=== PATIENT | male | born 1965 | race Caucasian/White ===

== ENCOUNTER 2017-02-18 19:36 | Emergency (ER) | payer BC ==
[2017-02-18 19:50] VITALS: BP 171/96
[2017-02-18] MEDS ORDERED: HYDROmorphone 1 MG/ML Syringe IVPUSH ONE ×3 (20:10→22:08)
[2017-02-18] MEDS ORDERED: Ondansetron 4 MG/2 ML SDV IV ONE (20:10)
[2017-02-18 20:35] LABS: CHLORIDE,CL 102 mmol/L (101-111); SODIUM,NA 140 mmol/L (135-145)
[2017-02-18] MEDS ORDERED: Iopamidol 612 MG/ML 100 ML Bottle IVPUSH ONE (23:08)
--- NOTE | 2017-02-19 06:47 | EDM.PDOC ---
ED HPI GENERAL MEDICAL PROBLEM - General Chief Complaint: Back Pain or Injury Stated Complaint: FELL OFF LADDER ONTO TREE, [id number] Time Seen by Provider: 02/18/17 19:45 Source of Information: Reports: Patient History Limitations: Reports: No Limitations - History of Present Illness INITIAL COMMENTS - FREE TEXT/NARRATIVE: ED ambulatory with friend, patient reports falling off ladder onto tree he had just cut down, fall approximately 4 feet. Noted landing on left side, No loss of consciousness, Did not hit head. C/o minor neck pain, pain to left shoulder, left wrist left ribs and hip. Was able to get up with assistance of friend. Pain with breathing. Onset: Today Location: Reports: Neck, Chest, Upper Extremity, Left Quality: Reports: Sharp (with inspiration), Throbbing Improves with: Reports: Immobilization Worsens with: Reports: Breathing, Movement Context: Reports: Trauma Left Lower Shoulder Pain Score (Numeric/FACES): 9 Left Wrist Pain Score (Numeric/FACES): 6 - Related Data Allergies Allergy/AdvReac Type Severity Reaction Status Date / Time No Known Allergies Allergy Verified 02/18/17 19:50 Home Meds: Home Meds . [No Known Home Meds] 02/18/17 [History] Past Medical History - Past Health History Medical/Surgical History: Denies Medical/Surgical History - Past Surgical History HEENT Surgical History: Reports: Tonsillectomy GI Surgical History: Reports: Appendectomy Social & Family History - Tobacco Use Smoking Status *Q: Current Every Day Smoker Years of Tobacco use: 25 Packs/Tins Daily: 5 - Caffeine Use Caffeine Use: Reports: Coffee, Soda, Tea - Recreational Drug Use Recreational Drug Use: No Review of Systems - Review of Systems Review Of Systems: ROS reveals no pertinent complaints other than HPI. ED EXAM, GENERAL - Physical Exam Exam: See Below Exam Limited By: No Limitations General Appearance: Alert, No Apparent Distress Eye Exam: Bilateral Eye: EOMI, PERRL Ears: Normal External Exam, Normal TMs Nose: Normal Inspection Throat/Mouth: Normal Inspection Head: Atraumatic, Normocephalic Neck: Normal Inspection, Tender Midline (lower) Respiratory/Chest: Decreased Breath Sounds, Wheezing (intermittant left), Splinting. No: Chest Non-Tender Cardiovascular: Normal Peripheral Pulses, Regular Rate, Rhythm, No Murmur GI/Abdominal: Normal Bowel Sounds, Soft, No Distention, Tender (mild LUQ) Extremities: Other (left shoulder no gross deformity, limited ROM, left wrist swollen, mild deformity, mild left hip pain with palpation) Neurological: Alert, Oriented, CN II-XII Intact, Normal Cognition Psychiatric: Normal Affect, Normal Mood Skin Exam: Warm, Dry, Intact, Normal Color ED TRAUMA PROCEDURES - Splinting Left Upper Extremity Splint Site: wrist Pre-Procedure NV Status: Normal Post-Procedure NV Status: Normal Splint Material: Metal Applied & Form Fitted By: Provider Provider Post-Splint Application NV Check: NV Status Normal Complications: No Course - Vital Signs Last Recorded V/S: Last Vital Signs Temp 97.2 F 02/18/17 19:40 Pulse 85 02/18/17 19:40 Resp 35 H 02/18/17 19:40 BP 171/96 H 02/18/17 19:40 Pulse Ox 95 02/18/17 19:40 - Orders/Labs/Meds Orders: Active Orders 24 hr Category Date Time Status UA W/MICROSCOPIC [URIN] Stat Lab 02/18/17 22:08 Uncollected Labs: Laboratory Tests 02/18/17 02/18/17 02/18/17 Range/Units 20:10 20:10 20:10 WBC 10.6 H (5.0-10.0) 10^3/uL RBC 4.93 (4.6-6.2) 10^6/uL Hgb 16.9 (14.0-18.0) g/dL Hct 47.1 (40.0-54.0) % MCV 95.5 (80-100) fL MCH 34.3 H (27.0-34.0) pg MCHC 35.9 H (33.0-35.0) g/dL Plt Count 68 L (150-450) 10^3/uL Neut % (Auto) 69.0 (42.2-75.2) % Lymph % (Auto) 22.3 (20.5-50.1) % [place] % (Auto) 7.4 (2-8) % Eos % (Auto) 1.2 (1.0-3.0) % Baso % (Auto) 0.1 (0.0-1.0) % PT 10.1 (9.0-12.0) SEC INR 1.0 (0.9-1.2) Sodium 140 (135-145) mmol/L Potassium 4.2 (3.6-5.0) mmol/L Chloride 102 (101-111) mmol/L Carbon Dioxide 24.0 (21.0-31.0) mmol/L Anion Gap 18.2 BUN 20 H (7-18) mg/dL Creatinine 0.8 (0.6-1.3) mg/dL Est Cr Clr Drug Dosing 124.84 mL/min Estimated GFR (MDRD) > 60 BUN/Creatinine Ratio 25.00 Glucose 107 H (74-105) mg/dL Calcium 9.5 (8.4-10.2) mg/dl Total Bilirubin 0.9 (0.2-1.0) mg/dL AST 48 H (10-42) IU/L ALT 49 (10-60) IU/L Alkaline Phosphatase 73 (42-121) IU/L Total Protein 8.2 (6.7-8.2) g/dl Albumin 5.0 (3.2-5.5) g/dl Globulin 3.2 Albumin/Globulin Ratio 1.56 Amylase 81 (28-100) U/L Lipase 41 (22-51) U/L Meds: Medications Discontinued Medications Generic Name Dose Route Start Last Admin Trade Name Freq PRN Reason Stop Dose Admin Hydromorphone HCl 1 mg 02/18/17 20:10 02/18/17 20:23 Dilaudid IVPUSH 02/18/17 20:11 1 mg ONETIME ONE Administration Hydromorphone HCl 1 mg 02/18/17 20:51 02/18/17 20:58 Dilaudid IVPUSH 02/18/17 20:52 1 mg ONETIME ONE Administration Hydromorphone HCl 1 mg 02/18/17 22:08 02/18/17 22:12 Dilaudid IVPUSH 02/18/17 22:09 1 mg ONETIME ONE Administration Iopamidol 100 ml 02/18/17 23:08 02/18/17 23:43 Isovue-300 (61%) IVPUSH 02/18/17 23:09 100 ml ONETIME ONE Administration Ondansetron HCl 4 mg 02/18/17 20:10 02/18/17 20:23 Zofran IV 02/18/17 20:11 4 mg ONETIME ONE Administration - Radiology Interpretation Free Text/Narrative:: Fx distal radius lateral fracture 6-9 left ribs fx costovertebral ribs left 5-7 pulmunary contusion left small left hemothorax abdomen and pelvis negative - Re-Assessments/Exams Free Text/Narrative Re-Assessment/Exam: 02/19/17 06:55 Tx to [facility] for further eval and management of multiple rib fractures and pulmonary contusion with small hemothorax. Dr. Lu accepting. Departure - Departure Time of Disposition: 22:30 Disposition: DC/Tfer to Acute Hospital 02 Condition: Undetermined Clinical Impression: Trauma, Hemothorax on left Multiple fractures of left upper extremity and ribs Qualifiers: Encounter type: initial encounter Fracture type: closed Qualified Code(s): S42.302A - Unspecified fracture of shaft of humerus, left arm, initial encounter for closed fracture; S22.42XA - Multiple fractures of ribs, left side , initial encounter for closed fracture Pulmonary contusion Qualifiers: Encounter type: initial encounter Laterality: left Qualified Code(s): S27.321A - Contusion of lung, unilateral, initial encounter - Discharge Information Forms: ED Department Discharge, Interfacility Transfer EMTALA - My Orders Last 24 Hours: My Active Orders 02/18/17 22:08 UA W/MICROSCOPIC [URIN] Stat - Assessment/Plan Last 24 Hours: My Active Orders 02/18/17 22:08 UA W/MICROSCOPIC [URIN] Stat
== END 2017-02-18 22:32 ==
LOC: DL.ED 19:36
DX: S27.1XXA Traumatic hemothorax, initial encounter (principal); S52.515A Nondisplaced fracture of left radial styloid process, initial encounter for closed fracture; S42.302A Unspecified fracture of shaft of humerus, left arm, initial encounter for closed fracture; S22.42XA Multiple fractures of ribs, left side, initial encounter for closed fracture; F17.210 Nicotine dependence, cigarettes, uncomplicated; Z90.49 Acquired absence of other specified parts of digestive tract; Z98.890 Other specified postprocedural states; W14.XXXA Fall from tree, initial encounter
CPT/HCPCS: 29125; 36415; 71260; 72125; 73020; 73110; 74177; 80053; 82150; 83690; 85025; 85610; 96374; 96375; 96376; 99285; J1170; J2405; Q9967

== ENCOUNTER → 2020-09-05 | Day surgery (SDC) | payer BC, OTHER ==
[~2020-09-05] MED LIST: Dextrose 5%-0.45% NaCl 1,000 ML IV SCH; Midazolam 1 MG/ML 2 ML SDV IV ONE; Midazolam 1 MG/ML 2 ML SDV ONE; Sodium Chloride 0.9% 10 ML Syringe FLUSH PRN; fentaNYL 100 MCG/2 ML SDV IV ONE; fentaNYL 100 MCG/2 ML SDV ONE
[2020-09-05 09:23] VITALS: BP 131/69; PULSE 65
--- NOTE | 2020-09-05 12:48 | OR ---
DATE: 09/05/2020 PROCEDURE: Total colonoscopy and multiple cold snare polypectomies. INSTRUMENT USED: [id number] Olympus video colonoscope. PREMEDICATIONS: Fentanyl 100 mcg intravenous, Versed 4 mg intravenous. The procedure was done under pulse oximetry and winder hand, and BP recording. INDICATIONS: Screening colonoscopic examination is done for detection of any polypoid lesions and removal, endoscopic hemostasis therapy if needed. DESCRIPTION OF PROCEDURE: Initial rectal exam was unremarkable. Rigid anoscopy was normal. The colonoscope was passed with ease. A couple of diminutive benign-appearing polyps were noted, photograph was taken, cold snare polypectomies were done, the tissues were retrieved and sent for histopathology. The scope was passed with ease up to the ileocecal area. Photographs were taken of the normal-appearing cecum identified by landmarks of appendiceal orifice and double-bulged ileocecal folds. No bleeding was noted from any of the visualized areas at the commencement of the examination. The bowel preparation was found to be adequate, [place] scale 3 in all the regions, total score 9. No stricture. No vascular ectasia. No large isolated ulcerations seen. No evidence of diffuse inflammatory bowel disease in the form of friability, contact bleeding, or ulcerations. Probing the proximal sides of folds and flexures using adequate distention and clearing up the stool material, withdrawal of the scope was made, cecum to rectum time over 6 minutes. No bleeding was noted from any of the visualized areas at the completion of examination. IMPRESSION: Diminutive rectal polyps. The patient tolerated the procedure well. [facility] /[id number]
== END ==
LOC: DL.ENDO 06:00
PROVIDERS: ATTEND Internal Medicine Gastroenterology
DX: Z12.11 Encounter for screening for malignant neoplasm of colon (principal); K62.1 Rectal polyp; I10 Essential (primary) hypertension; F17.210 Nicotine dependence, cigarettes, uncomplicated; M96.1 Postlaminectomy syndrome, not elsewhere classified; M54.5 Low back pain; E66.09 Other obesity due to excess calories; Z68.34 Body mass index [BMI] 34.0-34.9, adult; Z98.890 Other specified postprocedural states
CPT/HCPCS: 45385; J2250; J3010; J7042

== ENCOUNTER 2020-09-23 10:01 | Emergency (ER) | payer BC, OTHER ==
[2020-09-23] MEDS ORDERED: Diphtheria,Pertussis(Acell),Tetanus Vaccine 0.5 ML Syringe IM ONE (10:13)
[2020-09-23] MEDS ORDERED: Cephalexin 500 MG Cap PO ONE (10:13)
[2020-09-23 10:14] VITALS: BP 161/91; PULSE 90
[2020-09-23] MEDS ORDERED: Bacitracin Oint 1 GM U/D Packet TOP ONE (10:14)
--- NOTE | 2020-09-23 10:19 | EDM.PDOC ---
Scribed by Carri Sher 09/23/20 1010 for Dwight Beltran MD ED HPI GENERAL MEDICAL PROBLEM - General Chief Complaint: Laceration Stated Complaint: STEPPED ON JASIEL NAIL Time Seen by Provider: 09/23/20 10:05 Source of Information: Reports: Patient, RN, RN Notes Reviewed History Limitations: Reports: No Limitations - History of Present Illness INITIAL COMMENTS - FREE TEXT/NARRATIVE: Pt stepped on a jasiel nail last night. He had shoe and sock on at the time. Denies any other injury. Pt states his last Tetanus vaccine was in 2008. Onset: Sudden Onset Date: 09/22/20 Duration: Constant Location: Reports: Lower Extremity, Left Quality: Reports: Ache Severity: Mild Improves with: Reports: None Worsens with: Reports: None Associated Symptoms: Reports: No Other Symptoms - Related Data Allergies Allergy/AdvReac Type Severity Reaction Status Date / Time No Known Allergies Allergy Verified 09/04/20 11:38 Home Meds: Home Meds Acetaminophen [Acetaminophen Extra Strength] 1,000 mg PO Q6HR 11/17/17 [History] Ibuprofen [Motrin] 600 mg PO Q6HR 11/17/17 [History] Lisinopril 40 mg PO DAILY 11/17/17 [History] Past Medical History - Past Health History Medical/Surgical History: Denies Medical/Surgical History HEENT History: Reports: None Cardiovascular History: Reports: Hypertension Respiratory History: Reports: Other (See Below) Other Respiratory History: HX OF TOBACCO HABITUATION. HX OF LEFT HEMOTHORAX Gastrointestinal History: Reports: None Genitourinary History: Reports: None Musculoskeletal History: Reports: Back Pain, Chronic Neurological History: Reports: None Psychiatric History: Reports: Depression Endocrine/Metabolic History: Reports: Obesity/BMI 30+ Hematologic History: Reports: None Immunologic History: Reports: None Oncologic (Cancer) History: Reports: None Dermatologic History: Reports: None - Infectious Disease History Infectious Disease History: Reports: None - Past Surgical History Head Surgeries/Procedures: Reports: None HEENT Surgical History: Reports: Tonsillectomy Cardiovascular Surgical History: Reports: None Respiratory Surgical History: Reports: None GI Surgical History: Reports: Appendectomy Male Surgical History: Reports: None Endocrine Surgical History: Reports: None Neurological Surgical History: Reports: None Musculoskeletal Surgical History: Reports: ORIF, Other (See Below) Other Musculoskeletal Surgeries/Procedures:: RIGHT FOOT AND ANKLE ORIF Oncologic Surgical History: Reports: None Dermatological Surgical History: Reports: None Social & Family History - Family History Family Medical History: No Pertinent Family History - Caffeine Use Caffeine Use: Reports: Coffee, Soda, Tea Other Caffeine Use: AVERAGE OF 4-5 BEVERAGES DAILY Review of Systems - Review of Systems Review Of Systems: Comprehensive ROS is negative, except as noted in HPI. ED EXAM, GENERAL - Physical Exam Exam: See Below Exam Limited By: No Limitations General Appearance: Alert, WD/WN, No Apparent Distress Throat/Mouth: Normal Inspection, Normal Lips, Normal Voice Head: Atraumatic, Normocephalic Respiratory/Chest: No Respiratory Distress Cardiovascular: Normal Peripheral Pulses Extremities: Normal Range of Motion, Normal Capillary Refill, Other (left plantar foot has a small puncture wound, no FB, no signs of infection) Neurological: Alert, Oriented, No Motor/Sensory Deficits Psychiatric: Normal Mood Skin Exam: Warm, Dry, Normal Color, No Rash Course - Vital Signs Last Recorded V/S: Last Vital Signs Temp 97.9 F 09/23/20 10:13 Pulse 90 09/23/20 10:13 Resp 20 09/23/20 10:13 BP 161/91 H 09/23/20 10:13 Pulse Ox 97 09/23/20 10:13 - Orders/Labs/Meds Orders: Active Orders 24 hr Category Date Time Status Vaccines to be Administered [RC] PER UNIT ROUTINE Care 09/23/20 10:13 Ordered Bacitracin [Bacitracin Oint 1 GM] Med 09/23/20 10:14 Once 1 dose TOP ONETIME ONE Diphth,Pertuss(Acell),Tet Vac [Boostrix] Med 09/23/20 10:13 Once 0.5 ml IM .ONCE ONE cephALEXin [Keflex] Med 09/23/20 10:13 Once 500 mg PO ONETIME ONE Departure - Departure Time of Disposition: 10:18 Disposition: Home, Self-Care 01 Condition: Good Clinical Impression: Puncture wound of left foot Qualifiers: Encounter type: initial encounter Qualified Code(s): S91.332A - Puncture wound without foreign body, left foot, initial encounter - Discharge Information *PRESCRIPTION DRUG MONITORING PROGRAM REVIEWED*: Not Applicable *COPY OF PRESCRIPTION DRUG MONITORING REPORT IN PATIENT GINA: Not Applicable Instructions: Puncture Wound Forms: ED Department Discharge Additional Instructions: Rx: Cephalexin 500mg Follow up in clinic or ER if any signs of wound infection develop. Sepsis Event Note (ED) - Focused Exam Vital Signs: Vital Signs Temp Pulse Resp BP Pulse Ox 09/23/20 10:13 97.9 F 90 20 161/91 H 97 - My Orders Last 24 Hours: My Active Orders 09/23/20 10:13 Vaccines to be Administered [RC] PER UNIT ROUTINE Diphth,Pertuss(Acell),Tet Vac [Boostrix] 0.5 ml IM .ONCE ONE cephALEXin [Keflex] 500 mg PO ONETIME ONE 09/23/20 10:14 Bacitracin [Bacitracin Oint 1 GM] 1 dose TOP ONETIME ONE - Assessment/Plan Last 24 Hours: My Active Orders 09/23/20 10:13 Vaccines to be Administered [RC] PER UNIT ROUTINE Diphth,Pertuss(Acell),Tet Vac [Boostrix] 0.5 ml IM .ONCE ONE cephALEXin [Keflex] 500 mg PO ONETIME ONE 09/23/20 10:14 Bacitracin [Bacitracin Oint 1 GM] 1 dose TOP ONETIME ONE I have read and agree with the documentation that has been completed regarding this visit. By signing this record, I attest that the documentation was completed in my physical presence and is an accurate record of the encounter.
== END 2020-09-23 10:48 | disposition home or self-care (01) ==
LOC: DL.ED 10:01
DX: S91.332A Puncture wound without foreign body, left foot, initial encounter (principal); I10 Essential (primary) hypertension; E66.9 Obesity, unspecified; Z68.34 Body mass index [BMI] 34.0-34.9, adult; Z79.899 Other long term (current) drug therapy; Z23 Encounter for immunization; W45.0XXA Nail entering through skin, initial encounter
CPT/HCPCS: 90471; 90715; 99283; A9270

== ENCOUNTER 2024-03-24 14:59 | Emergency (ER) | payer OTHER ==
[2024-03-24] MEDS ORDERED: Sodium Chloride 0.9% 10 ML Syringe FLUSH PRN (15:34)
[2024-03-24 15:54] LABS: HEMATOCRIT 33.4 % (40.0-54.0); HEMOGLOBIN 11.9 g/dL (14.0-18.0); MEAN CORPUSCULAR HEMOGLOBIN 33.3 pg (27.0-34.0); MEAN CORPUSCULAR HGB CONC 35.6 g/dL (33.0-35.0); MEAN CORPUSCULAR VOLUME 93.6 fL (80-100); PLATELET COUNT,PLT 110 10^3/uL (150-450); RED BLOOD CELL COUNT 3.57 10^6/uL (4.6-6.2); WHITE BLOOD CELL COUNT,WBC 6.2 10^3/uL (5.0-10.0)
[2024-03-24 16:04] LABS: BASOPHILS PERCENT AUTO 0.3 % (0.0-1.0); EOSINOPHILS PERCENT AUTO 0.3 % (1.0-3.0); LYMPHOCYTES PERCENT AUTO 13.5 % (20.5-50.1); MONOCYTES PERCENT AUTO 10.5 % (2-8); NEUTROPHILS PERCENT AUTO 75.4 % (42.2-75.2)
[2024-03-24 16:13] LABS: A/G RATIO 1.1; ALBUMIN 3.8 g/dL (3.4-5.0); ANION GAP 8.3 mEq/L (7-13); BILIRUBIN TOTAL 0.5 mg/dL (0.2-1.0); BUN/CREATININE RATIO 17.2 (No establ ref range); CALCIUM 9.2 mg/dL (8.5-10.1); CREATININE 0.87 mg/dL (0.70-1.30); EST CRCL DRUG DOSING (CG) 102.82 mL/min; MAGNESIUM 1.8 mg/dL (1.8-2.4); POTASSIUM,K 3.3 mmol/L (3.5-5.1); PROTEIN TOTAL,TP 7.2 g/dL (6.4-8.2)
[2024-03-24] MEDS: Iopamidol 612 MG/ML 100 ML Bottle IVPUSH ONE (16:23)
[2024-03-24 16:35] LABS: BAND PERCENT MAN 2 %; EOSINOPHILS PERCENT MAN 1 % (1-3); LYMPHOCYTES PERCENT MAN 15 % (20-50); MONOCYTES PERCENT MAN 8 % (2-8); SEG NEUTROPHILS PERCENT MAN 74 % (42-75)
[2024-03-24 17:48] VITALS: BP 137/76; PULSE 98
== END 2024-03-24 18:23 | disposition home or self-care (01) ==
LOC: DL.ED 14:59
DX: I87.1 Compression of vein (principal); C34.90 Malignant neoplasm of unspecified part of unspecified bronchus or lung; C79.51 Secondary malignant neoplasm of bone; I10 Essential (primary) hypertension; E66.9 Obesity, unspecified; Z68.32 Body mass index [BMI] 32.0-32.9, adult; Z90.49 Acquired absence of other specified parts of digestive tract; Z79.899 Other long term (current) drug therapy
CPT/HCPCS: 36415; 71260; 80053; 83735; 85025; 99284; Q9967

== ENCOUNTER 2024-06-16 19:06 | Observation (INO) | payer OTHER ==
[2024-06-16] MEDS ORDERED: Acetaminophen/oxyCODONE 325-5 MG Tab PO PRN (19:47)
[2024-06-16] MEDS ORDERED: HYDROmorphone 0.5 MG/0.5 ML Syringe IVPUSH PRN (19:47)
[2024-06-16] MEDS ORDERED: Polyethylene Glycol 3350 Powder 17 GM Packet PO PRN (19:47)
[2024-06-16] MEDS ORDERED: Sennosides/Docusate Sodium 50-8.6 MG Tab PO PRN (19:47)
[2024-06-16] MEDS ORDERED: hydrALAZINE 20 MG/ML SDV IVPUSH PRN (19:47)
[2024-06-16] MEDS ORDERED: Naloxone 2 MG/2 ML Syringe IVPUSH PRN (19:47)
[2024-06-16] MEDS ORDERED: Metoprolol Tartrate 5 MG/5 ML SDV IVPUSH PRN (19:47)
[2024-06-16] MEDS ORDERED: Acetaminophen 325 MG Tab PO PRN ×2 (19:47→20:00)
[2024-06-16] MEDS ORDERED: Albuterol/Ipratropium 3.0-0.5 MG/3 ML Neb Soln NEB PRN (19:47)
[2024-06-16] MEDS ORDERED: Ondansetron 4 MG/2 ML SDV IVPUSH PRN (19:47)
[2024-06-16] MEDS ORDERED: Magnesium Hydroxide 400 MG/5 ML Susp 30 ML Cup PO PRN (19:47)
[2024-06-16] MEDS ORDERED: Benzocaine 20% Topical Spray UD MUCMEM PRN (20:18)
[2024-06-16 21:54] LABS: T4 FREE 1.46 ng/dL (0.76-1.46); TSH ULTRASENSITIVE 0.06 uIU/mL (0.36-3.74)
[2024-06-16 21:57] LABS: C-REACTIVE PROTEIN 0.52 ng/dL (<=0.50); MAGNESIUM 1.5 mg/dL (1.8-2.4)
[2024-06-16 22:01] LABS: LACTIC ACID 3.9 mmol/L (0.4-2.0)
[2024-06-16] MEDS: Dexamethasone 4 MG/ML SDV IVPUSH SCH (22:07)
[2024-06-16] MEDS: VANCOmycin 1.5 GM/300 ML 300 ML IV ONE (22:08)
[2024-06-16] MEDS: Sodium Chloride 0.9% 1,000 ML IV SCH (22:08)
[2024-06-16] MEDS: Cefepime 1 GM Vial IVPUSH SCH (22:08)
[2024-06-16] MEDS: Lactated Ringers 2,000 ML IV ONE (22:41)
[2024-06-16] MEDS: diphenhydrAMINE 50 MG/ML SDV IVPUSH ONE (23:01)
[2024-06-16] MEDS: Famotidine 20 MG/2 ML SDV IVPUSH ONE (23:01)
[2024-06-16] MEDS: Lactated Ringers 1,500 ML IV ONE (23:56)
[2024-06-17] MEDS: Magnesium Sulfate/Water Premix 2 GM in Premix Bag 1 BAG IV ONE ×2 (04:05→04:22)
[2024-06-17 06:53] LABS: HEMATOCRIT 28.7 % (40.0-54.0); HEMOGLOBIN 9.8 g/dL (14.0-18.0); MEAN CORPUSCULAR HEMOGLOBIN 37.1 pg (27.0-34.0); MEAN CORPUSCULAR HGB CONC 34.1 g/dL (33.0-35.0); MEAN CORPUSCULAR VOLUME 108.7 fL (80-100); PLATELET COUNT,PLT 101 10^3/uL (150-450); RED BLOOD CELL COUNT 2.64 10^6/uL (4.6-6.2); WHITE BLOOD CELL COUNT,WBC 15.8 10^3/uL (5.0-10.0)
[2024-06-17 07:24] LABS: BASOPHILS PERCENT AUTO 0.1 % (0.0-1.0); NEUTROPHILS PERCENT AUTO 93.9 % (42.2-75.2)
[2024-06-17 07:40] LABS: ALANINE AMINOTRANSFERASE,ALT 70 U/L (16-63); ALKALINE PHOSPHATASE 89 U/L (46-116); ANION GAP 12.9 mEq/L (7-13); ASPARTATE AMNIOTRANSFERASE,AST 94 U/L (15-37); BILIRUBIN TOTAL 0.4 mg/dL (0.2-1.0); BLOOD UREA NITROGEN,BUN 11 mg/dL (7-18); BUN/CREATININE RATIO 24.4 (No establ ref range); CALCIUM 8.6 mg/dL (8.5-10.1); CARBON DIOXIDE,CO2 28 mmol/L (21-32); CHLORIDE,CL 102 mmol/L (98-107); CREATININE 0.45 mg/dL (0.70-1.30); EST CRCL DRUG DOSING (CG) 198.79 mL/min; GLUCOSE RANDOM 137 mg/dL (70-99); MAGNESIUM 2.1 mg/dL (1.8-2.4); POTASSIUM,K 3.9 mmol/L (3.5-5.1); PROTEIN TOTAL,TP 5.9 g/dL (6.4-8.2); SODIUM,NA 139 mmol/L (136-145)
[2024-06-17 07:46] LABS: A/G RATIO 1.03; C-REACTIVE PROTEIN < 0.50 ng/dL (<=0.50); CREATINE KINASE,CK 1471 U/L (39-308); ESTIMATED GFR 123 mL/min (>=60)
[2024-06-17 07:49] LABS: BAND PERCENT MAN 5 %; LYMPHOCYTES PERCENT MAN 4 % (20-50); MONOCYTES PERCENT MAN 3 % (2-8); SEG NEUTROPHILS PERCENT MAN 88 % (42-75)
[2024-06-17 07:55] LABS: SEDIMENTATION RATE MANUAL 29 mm/hr (0-15)
[2024-06-17] MEDS: Loratadine 10 MG Tab PO SCH (09:18)
[2024-06-17] MEDS: Famotidine 20 MG Tab PO SCH (09:18)
[2024-06-17 09:54] LABS: APPEARANCE,URINE CLEAR (CLEAR); BACTERIA,URINE RARE /HPF (0-FEW/HPF); BILIRUBIN,URINE NEGATIVE (NEGATIVE); COLOR,URINE YELLOW (YELLOW); EPITHELIAL CELLS,URINE RARE /HPF (NOT SEEN); GLUCOSE,URINE NEGATIVE (NEGATIVE); KETONES,URINE NEGATIVE (NEGATIVE); LEUKOCYTE ESTERASE,URINE NEGATIVE (NEGATIVE); MUCUS,URINE RARE /LPF (NOT SEEN); NITRITE,URINE NEGATIVE (NEGATIVE); OCCULT BLOOD,URINE NEGATIVE (NEGATIVE); PROTEIN,URINE NEGATIVE (NEGATIVE); RBC,URINE 0-5 /HPF (0-5); UROBILINOGEN,URINE 0.2 mg/dL (0.2-1.0); WBC,URINE NOT SEEN /HPF (0-5/HPF)
[2024-06-17 10:26] LABS: CORONAVIRUS COVID-19 NAA NEGATIVE (NEGATIVE); INFLUENZA A NAA NEGATIVE (NEGATIVE); INFLUENZA B NAA NEGATIVE (NEGATIVE)
[2024-06-17] MEDS: Benzocaine/Cetylpyridinium/Menthol Lozenge MUCMEM PRN (14:32)
[2024-06-17] MEDS: VANCOmycin 1.25 GM in Sodium Chloride 0.9% 250 ML IV SCH ×2 (15:22→15:29)
[2024-06-17] MEDS: Temazepam 15 MG Cap PO PRN (22:34)
[2024-06-18 06:46] LABS: BASOPHILS PERCENT AUTO 0.1 % (0.0-1.0); HEMATOCRIT 29.4 % (40.0-54.0); HEMOGLOBIN 9.6 g/dL (14.0-18.0); LYMPHOCYTES PERCENT AUTO 2.4 % (20.5-50.1); MEAN CORPUSCULAR HEMOGLOBIN 36.2 pg (27.0-34.0); MEAN CORPUSCULAR HGB CONC 32.7 g/dL (33.0-35.0); MEAN CORPUSCULAR VOLUME 110.9 fL (80-100); MONOCYTES PERCENT AUTO 8.5 % (2-8); PLATELET COUNT,PLT 93 10^3/uL (150-450); RED BLOOD CELL COUNT 2.65 10^6/uL (4.6-6.2); WHITE BLOOD CELL COUNT,WBC 17.6 10^3/uL (5.0-10.0)
[2024-06-18 07:25] LABS: ALANINE AMINOTRANSFERASE,ALT 70 U/L (16-63); ALBUMIN 2.9 g/dL (3.4-5.0); ALKALINE PHOSPHATASE 93 U/L (46-116); ANION GAP 12.9 mEq/L (7-13); ASPARTATE AMNIOTRANSFERASE,AST 82 U/L (15-37); BILIRUBIN TOTAL 0.4 mg/dL (0.2-1.0); BLOOD UREA NITROGEN,BUN 9 mg/dL (7-18); BUN/CREATININE RATIO 18.8 (No establ ref range); C-REACTIVE PROTEIN < 0.50 ng/dL (<=0.50); CALCIUM 8.8 mg/dL (8.5-10.1); CARBON DIOXIDE,CO2 28 mmol/L (21-32); CHLORIDE,CL 105 mmol/L (98-107); CREATINE KINASE,CK 877 U/L (39-308); CREATININE 0.48 mg/dL (0.70-1.30); EST CRCL DRUG DOSING (CG) 186.37 mL/min; ESTIMATED GFR 120 mL/min (>=60); GLUCOSE RANDOM 125 mg/dL (70-99); POTASSIUM,K 3.9 mmol/L (3.5-5.1); PROTEIN TOTAL,TP 5.8 g/dL (6.4-8.2); SODIUM,NA 142 mmol/L (136-145)
[2024-06-18 11:09] VITALS: BP 148/72; PULSE 98
[2024-06-20 12:42] LABS: V ZOSTER IGG 7.5 S/CO; V ZOSTER IGM 0.38 ISR (<=0.90)
== END 2024-06-18 11:05 | disposition home or self-care (01) ==
LOC: DL.MS 19:06
PROVIDERS: ADMIT Internal Medicine; ATTEND Internal Medicine
DX: M60.9 Myositis, unspecified (principal); I10 Essential (primary) hypertension; C34.11 Malignant neoplasm of upper lobe, right bronchus or lung
CPT/HCPCS: 0240U; 36415; 71045; 80053; 80202; 81001; 82306; 82550; 83605; 83735; 84145; 84439; 84443; 84484; 85025; 85651; 86140; 86787; 87040; 87081; 87430; 87529; 87798; 93005; 96361; 96365; 96366; 96367; 96375; 96376; 99223; 99233; 99239; A9270; G0378; J0692; J1100; J1200; J3371; J3372; J3475; J7030; J7050; J7120